=== PATIENT | female | born 1970 | race Caucasian/White ===

== ENCOUNTER → 2016-04-08 13:26 | Outpatient (CLI) | payer MEDICAID ==
[2016-01-22 06:55] VITALS: BMI 28.4
[~2016-04-08 13:26] MED LIST: AMITIZA24 MCG PO; CABERGOLINE0.5 MG PO; CLONAZEPAM2 MG/TAB PO; GLYCOLAX527 GM PO; HYDROCODONE-APA1 TAB PO; IBUPROFEN800 MG PO; LEVOTHYROXINE75 MCG PO; LINZESS290 MCG PO; MINERAL OIL25 ML PO; NEURONTIN600 MG PO; PERCOCET 10/3251 TA1 PO; PROTONIX40 MG PO; VITAMIN B-1000 MCG/M IM; ZARAH TABLET1 EACH PO; ZOFRAN ODT4 MG/UDTAB PO
== END | disposition home or self-care (01) ==
LOC: D.MRI 13:26
DX: M25.512 Pain in left shoulder (principal)

== ENCOUNTER 2016-06-17 09:19 | Day surgery (SDC) | payer MEDICAID ==
[~2016-06-17] VITALS: Ht 162.6 cm; Wt 72.6 kg
[~2016-06-17 09:19] MED LIST changes: -LINZESS290 MCG PO
[2016-06-17 11:25] LABS: HEMATOCRIT 35.1 % (36.0-48.0); HEMOGLOBIN 11.5 g/dL (12-16); MCH 29.8 pg (26.0-34.0); MCHC 32.8 g/dL (31.0-37.0); MCV 90.9 fL (80.0-100.0); MEAN PLATELET VOLUME 9.3 fL (7.4-10.4); RBC 3.86 10x6/uL (4.00-5.40); WBC 5.3 10x3/uL (4.8-10.8)
[2016-06-17] MEDS ORDERED: LINZESS290 MCG PO (13:06)
[2016-06-17 13:16] VITALS: Ht 162.6 cm; Wt 72.6 kg
[2016-06-17 13:26] LABS: HCG URINE NEGATIVE (NEGATIVE)
[2016-06-17] MEDS ORDERED: PERCOCET 10/3251 TA1 PO (14:04)
--- NOTE | 2016-06-17 17:34 | NUR ---
1600--PT VOIDS, IV DC'D. JORDY CAMERON 1613--DISCHARGE INSTRUCTIONS GIVEN, PT VERBALIZES UNDERSTANDING. PT OFF UNIT VIA WC. JORDY CAMERON
--- NOTE | 2016-06-19 15:22 | OP ---
PATIENT NAME: GERSON MALCOLM MEDICAL RECORD: [id number] :72 LOCATION:D.OPS ADMISSION DATE: SURGEON: ANTONIA TRACY MD DATE OF OPERATION: 06/17/2016 Orthopedic Surgery Operative Note PREOPERATIVE DIAGNOSIS: Postoperative adhesive capsulitis of the left shoulder. POSTOPERATIVE DIAGNOSIS: Postoperative adhesive capsulitis of the left shoulder. PROCEDURE: Manipulation under anesthesia. SURGEON: Antonia Tracy MD ANESTHESIA: General. INTRAOPERATIVE COMPLICATIONS: None. SUMMARY OF PATHOLOGIC FINDINGS: Essentially, the patient had severe inferior adhesions, which was released nicely with manipulation. OPERATIVE SUMMARY IN DETAIL: After obtaining the appropriate preoperative orthopedic surgery consents as well as anesthetic consultation, evaluation and clearance, the patient was brought to the operating room and left on her [facility] where she was given TIVA anesthesia. After adequate TIVA anesthesia was administered, her scapula was stabilized on the left side and the shoulder was manipulated first in abduction followed by external rotation, internal rotation, flexion and extension. Having completed this, the patient was recovered and taken back to outpatient in stable condition. TRANSINT:[id number] Voice Confirmation ID: [id number] DOCUMENT ID: [id number] ANTONIA TRACY MD at 1522 CC: [id number] DICTATION DATE: 06/17/16 141 AMUSEMENT RIDE OPERATOR: 06/17/16 2311 [facility] 06/17/16 [id number] [place] [address]
== END 2016-06-17 16:15 | disposition home or self-care (01) ==
LOC: D.PAN 09:19 → D.OPS 09:19 → D.PAN 10:45 → D.OPS 14:30
PROVIDERS: Anesthesiology; Orthopaedic Surgery
DX: M75.02 Adhesive capsulitis of left shoulder (principal)

== ENCOUNTER 2016-08-22 06:27 | Day surgery (SDC) | payer OTHER ==
[2016-08-21 16:55] LABS: HEMATOCRIT 37.4 % (36.0-48.0); HEMOGLOBIN 12.2 g/dL (12-16); MCH 29.9 pg (26.0-34.0); MCHC 32.6 g/dL (31.0-37.0); MCV 91.7 fL (80.0-100.0); MEAN PLATELET VOLUME 9.7 fL (7.4-10.4); RBC 4.08 10x6/uL (4.00-5.40); WBC 6.2 10x3/uL (4.8-10.8)
[~2016-08-22] VITALS: Ht 162.6 cm; Wt 72.6 kg
--- NOTE | ~2016-08-22 | OP ---
PATIENT NAME: GERSON MALCOLM MEDICAL RECORD: [id number] :71 LOCATION:LINA ADMISSION DATE: SURGEON: ANTONIA TRACY MD DATE OF OPERATION: 08/22/2016 POSTOPERATIVE DIAGNOSES: 1. Recurrent SLAP lesion of the left shoulder. 2. Recurrent adhesive capsulitis of the left shoulder. POSTOPERATIVE DIAGNOSES: 1. Recurrent SLAP lesion of the left shoulder. 2. Recurrent adhesive capsulitis of the left shoulder. 3. Large osteochondral defect of the left shoulder. PROCEDURES: 1. Arthroscopic glenohumeral debridement, left shoulder. 2. Manipulation under anesthesia. SURGEON: Antonia Tracy MD. ANESTHESIA: General. INTRAOPERATIVE COMPLICATIONS: None. SUMMARY OF PATHOLOGIC FINDINGS: Unfortunately, upon entering the patient's shoulder, she was found to have a very large chondral defect. Intraoperative photographs were taken and made a part of the permanent chart. She did have recurrent labral tearing, likely due to the chondral defect. Multiple fragments of this chondral defect were ____ in the shoulder and had to be removed. OPERATIVE SUMMARY IN DETAIL: After obtaining the appropriate preoperative orthopedic surgery consent as well as anesthetic consultation, evaluation and clearance, the patient was brought to the operating room and placed on the table in supine position. After general laryngeal mask was administered, the patient was placed in a right lateral decubitus position. All pressure points were padded to include down leg peroneal pad as well as axillary roll. She was held firmly to the operating table using the vacuum pack suction system. Left upper extremity and shoulder were then prepped and draped in routine sterile fashion. The arm was held in the Arthrex traction boom at 30 degrees of forward flexion, 30 degrees of abduction, 10 pounds of traction laterally. Arthroscopy was established in the glenohumeral joint from a posterior portal. Anterior portal was established in the anterior safe interval. Arthroscopic findings as noted above were immediately seen. A resector was utilized to remove multiple osteochondral fragments as well as a grasper. After all these chondral fragments were noted. Multiple intraoperative photographs were taken of this chondral fragments for later use. Recurrent labral tearing was debrided and previous labral repair seemed to be in good overall condition. Having completed this, the arthroscope was removed and the shoulder was manipulated with release of ____ adhesions. Repeat look showed no further chondral fragments. Having completed this, arthroscopy portals were closed in routine interrupted fashion using 4-0 Prolene. Sterile dressings were applied. The patient was awakened and taken to recovery room in stable condition. All final needle and sponge counts were correct. TRANSINT:[id number] Voice Confirmation ID: [id number] DOCUMENT ID: [id number] OPERATIVE REPORT [id number] GERSON MALCOLM MD, ANTONIA PARNELL CC: [id number] DICTATION DATE: 08/26/161613 INSTRUMENT AND CONTROL SERVICE PERSON: 08/26/16 2331 [facility] 08/22/16 [id number] [place] [address]
[~2016-08-22 06:27] MED LIST changes: +FERROUS GLUCON324 MG PO; +LINZESS290 MCG PO
[2016-08-22 08:52] VITALS: Ht 162.6 cm; Wt 72.6 kg
[2016-08-22 09:30] LABS: HCG URINE NEGATIVE (NEGATIVE)
[2016-08-22] MEDS ORDERED: PERCOCET 10/3251 TA1 PO (12:52)
--- NOTE | 2016-08-22 17:30 | NUR ---
1400 IV DC WITH CATHER TIP INTACT
== END 2016-08-22 14:30 | disposition home or self-care (01) ==
LOC: D.OPS 06:27 → D.PAN 11:45 → D.OPS 11:45
PROVIDERS: Anesthesiology; Orthopaedic Surgery
DX: S43.432A Superior glenoid labrum lesion of left shoulder, initial encounter (principal); M75.02 Adhesive capsulitis of left shoulder; M25.512 Pain in left shoulder; Z01.812 Encounter for preprocedural laboratory examination

== ENCOUNTER → 2016-09-06 10:37 | Outpatient (CLI) | payer OTHER ==
[2016-08-22 08:52] VITALS: BMI 27.5
== END | disposition home or self-care (01) ==
LOC: D.CT 10:37
DX: M25.512 Pain in left shoulder (principal); Z48.89 Encounter for other specified surgical aftercare; S43.432A Superior glenoid labrum lesion of left shoulder, initial encounter

== ENCOUNTER → 2016-09-11 19:28 | Outpatient (CLI) | payer OTHER ==
[2016-08-22 08:52] VITALS: BMI 27.5
== END | disposition home or self-care (01) ==
LOC: D.LABREF 19:28
DX: M87.011 Idiopathic aseptic necrosis of right shoulder (principal); Z11.8 Encounter for screening for other infectious and parasitic diseases

== ENCOUNTER 2016-09-23 07:36 | Inpatient (IN) | payer OTHER ==
[2016-09-19 12:09] LABS: BASOPHILS 0.3 % (0-2); EOSINOPHILS 2.1 % (0-7); HEMATOCRIT 36.4 % (36.0-48.0); HEMOGLOBIN 11.9 g/dL (12-16); IMMATURE GRANULOCYTES 0.2 % (0-5); LYMPHOCYTES 38.1 % (15-50); MCH 30.1 pg (26.0-34.0); MCHC 32.7 g/dL (31.0-37.0); MCV 91.9 fL (80.0-100.0); MEAN PLATELET VOLUME 9.2 fL (7.4-10.4); MONOCYTES 8.8 % (2-11); NEUTROPHILS 50.5 % (40-80); PLATELET COUNT 284 10x3/uL (130-400); RBC 3.96 10x6/uL (4.00-5.40); WBC 6.1 10x3/uL (4.8-10.8)
[2016-09-19 12:10] LABS: APPEARANCE CLEAR (CLEAR); COLOR YELLOW (YELLOW)
[2016-09-19 12:11] LABS: BILIRUBIN NEGATIVE (NEGATIVE); GLUCOSE NEGATIVE (NEGATIVE); KETONE NEGATIVE (NEGATIVE); LEUKOCYTE ESTERASE NEGATIVE (NEGATIVE); NITRITE NEGATIVE (NEGATIVE); PROTEIN NEGATIVE (NEGATIVE); UROBILINOGEN NORMAL (NORMAL)
[2016-09-19 12:16] LABS: BACTERIA FEW /hpf (NONE SEEN); EPITHELIAL CELLS 0-5 /hpf (0-5); RED CELLS - URINE 0-5 /hpf (0-5); WHITE CELLS - URINE OCC /hpf (0-5)
[2016-09-19 12:24] LABS: APTT 28.4 SECONDS (22.8-39.4); INR 0.97 (0.85-1.17); PROTIME 12.7 SECONDS (11.6-15.0)
[2016-09-19 12:25] LABS: ANION GAP 14.4 mmol/L (8-16); CALCIUM 9.1 mg/dL (8.5-10.1); CARBON DIOXIDE 25.2 mmol/L (21.0-32.0); POTASSIUM - SERUM 4.6 mmol/L (3.5-5.1)
[~2016-09-23] VITALS: Ht 162.6 cm; Wt 72.7 kg
[2016-09-23] VITALS (11 sets, daily range): BP systolic 104–133; BP diastolic 61–79; Ht 162.6 cm; Wt 72.7 kg
[2016-09-23 08:52] LABS: HCG URINE NEGATIVE (NEGATIVE)
--- NOTE | 2016-09-23 15:00 | NUR ---
PATIENT TO ROOM AT THIS TIME WITH VS STABLE. IV INTACT. EYES CLOSED RESTING QUIETLY. NO SIGNS OF DISTRESS. DRESSING TO LEFT SHOULDER CLEAN AND DRY AND SLING ON AT THIS TIME. BSCDS ON AND WORKING. FAMILY AT BEDSIDE. CALL LIGHT WITHIN REACH.
--- NOTE | 2016-09-23 17:45 | NUR ---
PATIENT UP TO BR WITH ASSIST. BACK TO BED AT THIS TIME. SITTING UP IN BED EATING. TOLERATED REGULAR DIET WITH NO COMPLAINTS. CALL LIGHT WITHIN REACH.
--- NOTE | 2016-09-23 21:46 | NUR ---
IV TO RIGHT FOREARM TENDER TO THE TOUCH AND SWELLING. D/C WITH CATHETER INTACT. TRIED TO START IV TO RIGHT WRIST, UNSUCCESSFUL.
--- NOTE | 2016-09-23 22:40 | NUR ---
IV STARTED TO RIGHT HAND BY NISHA MENDOSA.
[2016-09-24] VITALS (7 sets, daily range): BP systolic 81–106; BP diastolic 46–68
--- NOTE | 2016-09-24 04:54 | NUR ---
PATIENT PUSHED HER CALL LIGHT, ENTERED PATIENT'S ROOM, THE CONTINUOUS PULSE OXIMETER IS BEEPING SHOWING THE HR AT 34. CHECKED PATIENT'S RIGHT RADIAL PULSE, IT IS 34. PATIENT STATED "I DON'T FEEL TO GOOD. I FEEL LIKE I AM GOING TO PASS OUT." PATIENT'S COLOR IS VERY PALE. CALLED A RAPID RESPONSE.
--- NOTE | 2016-09-24 04:55 | NUR ---
PATIENT'S HEART RATE STATED TO COME UP, IN THE 60'S BY THE TIME THE RAPID RESPONSE TIME ARRIVED. PATIENT MORE ALERT, AND COLOR COMING BACK, NOT SO PALE.
--- NOTE | 2016-09-24 05:50 | NUR ---
PATIENT IS AWAKE, AND ALERT. PATIENT STATED SHE IS FEELING MUCH BETTER, JUST HAVING PAIN IN THE SHOULDER FROM SURGERY.
--- NOTE | 2016-09-24 07:30 | NUR ---
AWAKE AND ALERT. ORIENTED X3. LUNGS ARE CLEAR BILATERALLY, NO COUGH NOTED. SKIN IS INTACT WITHOUT REDNESS EXCEPT INCISION TO RIGHT ARM/SHOULDER WHICH HAS A DRY INTACT DRESSING IN PLACE. IV TO RIGHT HAND IS PATENT WITHOUT REDNESS AT INSERTION SITE. NEURO CHECKS WNL.
--- NOTE | 2016-09-24 10:00 | NUR ---
DIDN'T EAT MUCH BREAKFAST THIS AM. DENIES NEEDS. CPM OFF AT O900.
--- NOTE | 2016-09-24 10:00 | NUR ---
UP IN ROOM WITH PT. NO C/O AT THIS THIS TIME.
--- NOTE | 2016-09-24 11:05 | NUR ---
REQUESTED AND GIVEN ONE PERCOCET PO FOR C/O RIGHT SHOULDER PAIN LEVEL 8. WILL MONITOR.
--- NOTE | 2016-09-24 12:15 | NUR ---
LUNCH SERVED IN ROOM. FEEDS SELF WITH SET UP. POSITIONED IN BED FOR COMFORT.
--- NOTE | 2016-09-24 15:00 | NUR ---
RESTING QUIETLY IN BED. DENIES NEEDS.
--- NOTE | 2016-09-24 17:30 | NUR ---
ATE ALL OF SUPPER. DENIES NEEDS. NO CHANGES NOTED.
[2016-09-25] VITALS: BP 103/59
[2016-09-25 04:00] VITALS: BP 116/68
[2016-09-25 08:18] VITALS: BP 107/57
--- NOTE | 2016-09-25 09:07 | NUR ---
Patient Name: GERSON MALCOLM Admission Status: Elective Accout number: [id number] Admission Date: 09-23-2016 : 1970 Admission Diagnosis: Attending: JACI Current LOS: 2 Anticipated DC Date: 09-25-2016 Planned Disposition: Home Primary Insurance: [employer] PPO Discharge Planning Comments: CM MET WITH PATIENT REGARDING D/C NEEDS AND PLANS (DISCHARGING TODAY). PATIENT STATED SHE LIVES ALONE AND HER PARENTS AND NEIGHBORS HELP HER IF NEEDED. PATIENT HAS 2 STEPS TO ENTER HOME AND 2 STEPS INSIDE. PATIENT STATED SHE IS INDEPENDENT WITH HER CARE AND HAS A WALKER, AND CANE AT HOME. PATIENT HAS NO PCP AND USES [facility]. PATIENT DENIED NEEDS FOR DISCHARGE AND HER MOM WILL DRIVE HER HOME TODAY.CM WILL CONTINUE TO FOLLOW PATIENT WITH D/C NEEDS AND PLANS. PCP NONE [facility] [id number] GERSON CHAUDHRY (MOM) [phone] Supervisor Coil Winding: Coral Allison Is the patient Alert and Oriented? Yes 0 * How many steps to enter\exit or inside your home? 2 0 * PCP NONE 0 * Pharmacy [facility] 0 * Preadmission Environment Home Alone 0 * ADLs Independent 0 * Equipment Cane Walker 0 * List name and contact numbers for known caregivers / representatives who currently or will assist patient after discharge: GERSON CHAUDHRY (MOM) [phone] * Community resources currently utilized None 0 * Additional services required to return to the preadmission environment? Yes 0 * Can the patient safely return to the preadmission environment? Yes 0 * Has this patient been hospitalized within the prior 30 days at any hospital? No 0 Grand Total: 0
--- NOTE | 2016-09-25 12:30 | NUR ---
ATE MOST OF LUNCH. DENIES NEEDS.
--- NOTE | 2016-09-25 13:30 | NUR ---
DISCHARGED TO HOME AMBULATORY WITH FAMILY. DISCHARGE INSTRUCTIONS GIVEN BOTH VERBALLY AND WRITTEN. ALL QUESTIONS ANSWERED. PATIENT AND FAMILY VERBALIZED UNDERSTANDING OF SAME. NEEDED PRESCRIPTIONS GIVEN TO PATIENT. IV TO RIGHT HAND D/C WITH CATHETER INTACT. REQUESTED AND GIVEN ONE PERCOCET PO FOR C/O LEFT SHOULDER PAIN LEVEL 9. DRESSING CHANGED TO LEFT SHOULDER USING CLEAN TECHNIQUE. 2 SMALL TAPE BLISTERS ON FRONT OF CHEST NOTED.
== END 2016-09-25 13:30 | disposition home or self-care (01) | DRG 483 ==
LOC: D.MS 07:36 → D.SDCHOLD 07:36 → D.MS 14:10 → D.SDCHOLD 16:30 → D.MS 09-25 13:30
PROVIDERS: ADMIT Orthopaedic Surgery
PROC: 0RRK0JZ Replacement of Left Shoulder Joint with Synthetic Substitute, Open Approach (ICD-10-PCS; principal; 2016-09-23 09:30)
DX: M87.9 Osteonecrosis, unspecified (principal); K21.9 Gastro-esophageal reflux disease without esophagitis; E03.9 Hypothyroidism, unspecified; G40.909 Epilepsy, unspecified, not intractable, without status epilepticus; R00.1 Bradycardia, unspecified; Z87.891 Personal history of nicotine dependence

== ENCOUNTER → 2016-11-25 10:32 | Outpatient (CLI) | payer OTHER ==
[2016-09-23 15:08] VITALS: BMI 27.5
[2016-11-25 13:18] LABS: ERYTHROCYTE SEDIMENTATION RATE 30 mm/hr (0-20)
== END | disposition home or self-care (01) ==
LOC: D.US 10:32
PROVIDERS: Orthopaedic Surgery
DX: M25.512 Pain in left shoulder (principal); R22.32 Localized swelling, mass and lump, left upper limb

== ENCOUNTER → 2016-12-17 10:56 | Outpatient (CLI) | payer OTHER ==
[2016-09-23 15:08] VITALS: BMI 27.5
[2016-12-17 11:50] LABS: ALBUMIN 3.1 g/dL (3.4-5.0); BILIRUBIN - TOTAL 0.25 mg/dL (0.2-1.3); C-REACTIVE PROTEIN 2.6 mg/dL (0.0-0.9); CALCIUM 8.9 mg/dL (8.5-10.1); CARBON DIOXIDE 25.2 mmol/L (21.0-32.0); CREATININE - SERUM 0.9 mg/dL (0.6-1.3); POTASSIUM - SERUM 4.2 mmol/L (3.5-5.1); PROTEIN - SERUM 7.6 g/dL (6.4-8.2); URIC ACID 4.9 mg/dL (2.6-7.2)
[2016-12-17 12:34] LABS: ERYTHROCYTE SEDIMENTATION RATE 34 mm/hr (0-20)
[2016-12-18 12:17] LABS: ANA REFLEX - DIRECT Negative (Negative)
== END | disposition home or self-care (01) ==
LOC: D.LAB 12-16 11:00
PROVIDERS: Orthopaedic Surgery
DX: M25.50 Pain in unspecified joint (principal)

== ENCOUNTER → 2017-02-13 11:17 | Outpatient (CLI) | payer MEDICARE ==
[2016-09-23 15:08] VITALS: BMI 27.5
== END | disposition home or self-care (01) ==
LOC: D.US 11:17
DX: R22.32 Localized swelling, mass and lump, left upper limb (principal); M25.512 Pain in left shoulder